=== PATIENT | female | born 1930 | race Caucasian/White ===

== ENCOUNTER 2016-11-17 18:50 | Emergency (ER) | payer OTHER ==
[~2016-11-17] VITALS: Ht 165.1 cm; Wt 61.2 kg
--- NOTE | ~2016-11-17 | EKG ---
[address] [place] [address] ELECTROCARDIOGRAM REPORT Name: ELLIEILIRASHLI F [id number] Admission: 11/17/16 Attend Phys: Discharge: 11/17/16 Date of : 32 Report #: [id number] THIS REPORT FOR: //name// [facility] ED Test Date: 2016-11-17 Test Time: 20:01:11 Pat Name: ASHLI ARGUETA Department: Room: Gender: Group Reservations Coordinator: NOA : 1930 Requested By: Sienna Stein Order Number: [id number] MD: Madan Barrett Measurements Intervals [place] Rate: 83 P: 96 SC: 137 QRS: -24 QRSD: 91 T: 29 QT: 372 QTc: 437 Interpretive Statements Sinus rhythm Atrial premature complex Borderline left axis deviation Borderline T abnormalities, anterior leads No previous ECG available for comparison Electronically Signed On 11-18-2016 9:06:10 CDT by Madan Barrett [email or web address] <ELECTRONICALLY SIGNED> By: Madan Barrett MD, [facility] 11/18/16 0906 00 00 Madan Barrett MD, FACC /EPI
[~2016-11-17 18:50] MED LIST: ARICEPT 5 MG TAB5 MG PO; COLACE 100 MG100 MG PO; NAMENDA 10 MG T10 MG PO; NORCO 5-325 TA1 EACH PO; SENOKOT-S1 TA1 PO; SIMVASTATIN5 MG PO; TENORMIN50 MG PO; UNICOMPLEX M TA1 TA1 PO; [UNRECOGNIZED DRUG - REMARK]
[2016-11-17 19:50] LABS: HEMATOCRIT 44.3 % (37.0-47.0); HEMOGLOBIN 14.8 gm/dL (12.0-15.0); MCH 31.9 pg (26.0-34.0); MCHC 33.5 g/dL (28.0-37.0); MCV 95.2 fL (80.0-100.0); PLATELET COUNT 156 thou/uL (150-400); RBC 4.65 mil/uL (4.20-5.00); RDW 12.7 % (10.5-14.5); WBC 6.1 thou/uL (4.0-11.0)
[2016-11-17 19:56] LABS: MANUAL DIFF YES
[2016-11-17 20:08] LABS: ANION GAP 12 mmol/L (7-16); BUN 8 mg/dL (7-18); CALCIUM 9.3 mg/dL (8.5-10.1); CHLORIDE 100 mmol/L (98-107); CO2 25 mmol/L (21-32); CREATININE 0.8 mg/dL (0.6-1.0); GLUCOSE 116 mg/dL (74-106); POTASSIUM 4.2 mmol/L (3.5-5.1); SODIUM 137 mmol/L (136-145)
[2016-11-17 20:14] LABS: ALBUMIN 3.4 g/dL (3.4-5.0); ALKALINE PHOSPHATASE 78 U/L (46-116); DIRECT BILIRUBIN < 0.1 mg/dL (<0.1-0.3); SGOT 29 U/L (15-37); SGPT 24 U/L (30-65); TOTAL BILIRUBIN 0.3 mg/dL (<0.1-1.0)
[2016-11-17 20:19] LABS: URINE BILIRUBIN NEGATIVE (Negative); URINE BLOOD 1+ (Negative); URINE COLOR YELLOW; URINE GLUCOSE-RANDOM* NEGATIVE (Negative); URINE KETONES NEGATIVE (Negative); URINE NITRITE POSITIVE (Negative); URINE PROTEIN (DIPSTICK) NEGATIVE (Negative); URINE UROBILINOGEN 0.2 E.U./dl (0.2-1.0)
[2016-11-17 20:29] LABS: ABSOLUTE NEUTROPHILS 4.2 thou/uL (1.4-8.2); PLATELET ESTIMATE NORMAL; TOTAL CELL COUNT 100
[2016-11-17 20:31] LABS: CASTS None Seen /LPF (None Seen); CRYSTALS None Seen /LPF (None Seen); SQUAMOUS 0-3 Few /LPF (0-3); TRANSITIONAL EPITHEL CELL 0-3 Few /LPF (None Seen); URINE WBC 6-15 Few /HPF (0-5)
[2016-11-17 20:32] LABS: URINE RBC 3-10 Few /HPF (0-2)
[2016-11-17] MEDS ORDERED: NORVASC5 MG PO (20:42)
[2016-11-17] MEDS ORDERED: BACTRIM DS TAB1 EACH PO (21:10)
[2016-11-17] MEDS ORDERED: CLONIDINE0.1 PO (21:28)
[2016-11-17 21:42] VITALS: BP 202/100
== END 2016-11-17 21:44 | disposition home or self-care (01) ==
LOC: ER 18:50
PROVIDERS: Emergency Medicine
DX: N39.0 Urinary tract infection, site not specified (principal); R19.7 Diarrhea, unspecified; I10 Essential (primary) hypertension; E78.00 Pure hypercholesterolemia, unspecified; M81.0 Age-related osteoporosis without current pathological fracture; F10.99 Alcohol use, unspecified with unspecified alcohol-induced disorder